=== PATIENT | male | born 1940 | race Caucasian/White ===

== ENCOUNTER 2017-01-11 12:09 | Emergency (ER) | payer MEDICARE, OTHER ==
[2017-01-11 15:50] LABS: BASOPHILS 0.1 %; BASOPHILS ABSOLUTE 0.01 10/3/uL (0.0-0.16); EOSINOPHILS 1.7 %; EOSINOPHILS ABSOLUTE 0.15 10/3/uL (0.0-0.53); ER CBC TAT 0 Hrs 05 Mins; HEMATOCRIT 40.5 % (40.0-51.0); HEMOGLOBIN 14.2 g/dL (13.6-17.8); IMMATURE GRANULOCYTES 0.2 %; IMMATURE GRANULOCYTES ABSOLUTE 0.02 10/3/uL (0.0-0.11); LYMPHOCYTES 28.9 %; LYMPHOCYTES ABSOLUTE 2.62 10/3/uL (0.67-4.30); MEAN CORPUS HGB CONC 35.1 g/dL (32.0-36.0); MEAN CORPUSCULAR HEMOGLOB 31.7 pg (26.0-34.0); MEAN CORPUSCULAR VOLUME 90.4 fL (80-100); MEAN PLATELET VOLUME 9.9 fL (9.2-13.0); MONOCYTES 6.6 %; NEUTROPHILS 62.5 %; NEUTROPHILS ABSOLUTE 5.66 10/3/uL (2.02-8.40); PLATELET COUNT 180 10/3/uL (150-400); RBC DISTRIBUTION WIDTH 13.6 % (12.0-16.0); RED CELL COUNT 4.48 10/6/uL (4.7-6.1); WHITE BLOOD CELLS 9.1 10/3/uL (4.5-10.5)
[2017-01-11 15:51] LABS: MANUAL DIFF NO %
[2017-01-11 16:06] LABS: BUN (BLOOD UREA NITROGEN) 18 MG/DL (6-23); CALCIUM, SERUM 9.2 MG/DL (8.5-10.4); CHEST PAIN PROFILE TAT 0 Hrs 21 Mins; CHLORIDE, SERUM 105 MMOL/L (96-112); CO2 (CARBON DIOXIDE) 33 MMOL/L (24-34); CREATININE 1.06 MG/DL (0.70-1.30); GFR AFRICAN AMERICAN 79 ML/MIN (>=60); GFR NON AFRICAN AMERICAN 68 ML/MIN (>=60); GLUCOSE, SERUM 130 MG/DL (60-99); INTERNATIONAL NORMAL RATI 1.1 UNITS (-); PARTIAL THROMBO TIME 28.9 SEC (22.5-37.2); POTASSIUM, SERUM 3.8 MMOL/L (3.5-5.3); PROTIME (NOT ORD) 14.1 SEC (12.0-14.5); SODIUM, SERUM 142 MMOL/L (135-148); TROPONIN I <0.02 NG/ML (<0.05)
== END 2017-01-11 17:30 | disposition home or self-care (01) ==
LOC: ER 12:09
PROVIDERS: Emergency Medicine
DX: R53.1 Weakness (principal); K21.9 Gastro-esophageal reflux disease without esophagitis; Z91.041 Radiographic dye allergy status; Z95.5 Presence of coronary angioplasty implant and graft; Z88.0 Allergy status to penicillin; Z88.2 Allergy status to sulfonamides; Z88.1 Allergy status to other antibiotic agents
CPT/HCPCS: 71020; 80048; 83735; 84484; 85025; 85610; 85730; 99285